=== PATIENT | male | born 1975 | race Caucasian/White ===

== ENCOUNTER 2019-11-25 16:12 | Inpatient (IN) | payer BC ==
[~2019-11-25] VITALS: Ht 177.8 cm; Wt 110.7 kg
[2019-11-25] MEDS ORDERED: METOPROLOL TART50 MG PO ×2 (16:18→18:20)
[2019-11-25] MEDS ORDERED: ATIVAN2 MG PO (16:19)
[2019-11-25] MEDS ORDERED: NAPROSYN500 MG PO (16:19)
[2019-11-25] MEDS ORDERED: BAYER CHEWABLE81 MG PO (16:19)
[2019-11-25 16:45] LABS: BASOPHILS 0.1 % (0-2); EOSINOPHILS 1.6 % (0-7); HEMATOCRIT 43.9 % (42.0-54.0); HEMOGLOBIN 15.3 g/dL (13.5-17.5); IMMATURE GRANULOCYTES 0.2 % (0-5); LYMPHOCYTES 9.5 % (15-50); MCH 30.6 pg (26.0-34.0); MCHC 34.9 g/dL (31.0-37.0); MCV 87.8 fL (80.0-100.0); MEAN PLATELET VOLUME 9.7 fL (7.4-10.4); MONOCYTES 10.1 % (2-11); NEUTROPHILS 78.5 % (40-80); PLATELET COUNT 284 10x3/uL (130-400); RDW 12.6 % (11.5-14.5); WBC 14.2 10x3/uL (4.8-10.8)
[2019-11-25 16:51] LABS: APPEARANCE CLEAR (CLEAR); BILIRUBIN NEGATIVE (NEGATIVE); COLOR YELLOW (YELLOW); GLUCOSE NEGATIVE (NEGATIVE); KETONE NEGATIVE (NEGATIVE); NITRITE NEGATIVE (NEGATIVE); PROTEIN NEGATIVE (NEGATIVE); UROBILINOGEN NORMAL (NORMAL)
[2019-11-25 18:06] LABS: CALC OSMOLALITY 280 mosm/kg (275-300); CALCIUM 9.6 mg/dL (8.5-10.1); CARBON DIOXIDE 27.7 mmol/L (21.0-32.0); CHLORIDE - SERUM 102 mmol/L (98-107); CREATININE - SERUM 1.2 mg/dL (0.6-1.3); GLUCOSE 105 mg/dL (74-106); POTASSIUM - SERUM 3.9 mmol/L (3.5-5.1); SODIUM 139 mmol/L (136-145); UREA NITROGEN 20 mg/dL (7-18); eGFR NON AFRICAN AMERICAN 69 mL/min (90-120)
[2019-11-25 18:15] LABS: ALKALINE PHOSPHATASE 82 U/L (30-120); ALT (SGPT) 61 U/L (10-68); AMYLASE - SERUM 62 U/L (25-115); BILIRUBIN - TOTAL 0.71 mg/dL (0.2-1.3); LIPASE 117 U/L (73-393); PROTEIN - SERUM 8.2 g/dL (6.4-8.2)
[2019-11-25 18:16] LABS: TROPONIN-I < 0.017 ng/mL (0.000-0.060)
[2019-11-25] MEDS ORDERED: HYDROCHLOROTH12.5 M1 PO (18:22)
[2019-11-25] MEDS ORDERED: EFFEXOR XR150 MG PO (18:22)
[2019-11-25] MEDS ORDERED: ALEVE220 MG PO (18:24)
--- NOTE | 2019-11-25 18:30 | NUR ---
PATIENT IN WITH C/O MID ABD PAIN, NAUSEA AND VOMITING, STATES IT STARTED THIS MORNING AND HAS GOTTEN WORSE. STATES HIS BM HAVE BEEN HIS NORMAL, FAMILY AT BEDSIDE.
--- NOTE | 2019-11-25 18:49 | NUR ---
TO CT VIA W/C PER TECH
[2019-11-25 19:00] VITALS: BP 139/94
--- NOTE | 2019-11-25 20:35 | NUR ---
NS 1 LITER BOLUS INITIATED AT 1808 BY CATIE RANGEL. DOCUMENTED UNDER ORDER FOR 150ML/HR NS. UNABLE TO CHANGE DOCUMENTATION.
--- NOTE | 2019-11-25 20:38 | NUR ---
NS LITER BOLUS STOPPED AT THIS TIME. .
--- NOTE | 2019-11-25 21:30 | NUR ---
PT ARRIVED ON UNIT VIA STRETCHER ESCORTED BY SPOUSE AND ER NURSE. POSITIONED IN BED FOR COMFORT. ORIENTED TO ROOM AND CALL LIGHT.
--- NOTE | 2019-11-25 21:35 | NUR ---
NG TUBE CONNECTED TO LIS PER ORDER.
--- NOTE | 2019-11-25 22:15 | NUR ---
STARTED IV FLUIDS PER ORDER.
--- NOTE | 2019-11-25 22:20 | NUR ---
RECEIVED ORDER FROM DYLAN HALL FOR ATIVAN 2 MG IVP Q8 PRN FOR ANXIETY...PT TAKES 2 MG PO Q8PRN AT HOME.
--- NOTE | 2019-11-25 22:30 | NUR ---
GAVE ATIVAN 2 MG IVP PER NEW PRN ORDER, PER REQUEST FOR ANXIETY. WILL MONITOR FOR EFFECTIVENESS.
[2019-11-25 22:46] VITALS: BP 137/94; BMI 35.0
--- NOTE | 2019-11-25 23:08 | NUR ---
ADMISSION ASSESSMENT AND HISTORY COMPLETE.
--- NOTE | 2019-11-25 23:40 | NUR ---
FLUSHED NG TUVE WITH 60 ML WATER, DRAINAGE VERY THICK.
--- NOTE | 2019-11-25 23:50 | NUR ---
GAVE MORPHINE AND ZOFRAN FOR C/O PAIN AND NAUSEA. WILL MONITOR FOR EFFECTIVENESS.
[2019-11-26 00:32] VITALS: BP 139/89
[2019-11-26 04:15] VITALS: BP 131/74
--- NOTE | 2019-11-26 06:05 | NUR ---
TURNED OFF SUCTION TO NG TUBE PER ORDER.
[2019-11-26 08:52] VITALS: BP 141/95
--- NOTE | 2019-11-26 09:33 | NUR ---
RESTING IN BED, NO DISTRESS NOTED, IV INFUSING, NG OFF SUCTION ORDERED, FAMILY IN ROOM
--- NOTE | 2019-11-26 11:00 | NUR ---
NG REMAINS OFF, CONT TO MONITOR FOR N AND V
[2019-11-26 12:34] VITALS: BP 142/73
[2019-11-26 13:48] VITALS: Ht 177.8 cm; Wt 110.7 kg
--- NOTE | 2019-11-26 14:21 | NUR ---
REMOVED NG TUBE PER DR ORDER, KYRIE WELL, WILL PROVIDE CL LIQ
--- NOTE | 2019-11-26 19:00 | NUR ---
BEDSIDE REPORT RECEIVED AND CARE OF PT ASSUMED. PT JUST AMBULATED AROUND UNIT WITH SPOUSE...STATES FEELING BETTER NOW THAT NG TUBE IS OUT. IV TO LEFT FA PATENT WITH 1/2 NS INFUSING AT 100 ML/HR. WILL MONITOR FOR NEEDS.
--- NOTE | 2019-11-26 21:08 | NUR ---
HS MEDICATIONS GIVEN TO INCLUDE ATIVAN 2 MG IVP PER REQUEST FOR ANXIETY AND SLEEP.
[2019-11-26 21:25] VITALS: BP 150/96
[2019-11-27 01:00] VITALS: BP 108/75
[2019-11-27 04:57] LABS: BASOPHILS 0.2 % (0-2); HEMATOCRIT 38.1 % (42.0-54.0); IMMATURE GRANULOCYTES 0.2 % (0-5); MCH 30.2 pg (26.0-34.0); MCHC 34.1 g/dL (31.0-37.0); MCV 88.4 fL (80.0-100.0); MEAN PLATELET VOLUME 9.6 fL (7.4-10.4); MONOCYTES 14.1 % (2-11); NEUTROPHILS 62.5 % (40-80); PLATELET COUNT 235 10x3/uL (130-400); RBC 4.31 10x6/uL (4.20-6.10); RDW 12.4 % (11.5-14.5)
[2019-11-27 05:10] LABS: WBC 8.3 10x3/uL (4.8-10.8)
[2019-11-27 05:19] LABS: CALC OSMOLALITY 276 mosm/kg (275-300); CALCIUM 8.6 mg/dL (8.5-10.1); CARBON DIOXIDE 28.2 mmol/L (21.0-32.0); CHLORIDE - SERUM 107 mmol/L (98-107); GLUCOSE 88 mg/dL (74-106); PHOSPHOROUS 3.4 mg/dL (2.5-4.9); POTASSIUM - SERUM 3.6 mmol/L (3.5-5.1); SODIUM 140 mmol/L (136-145); eGFR NON AFRICAN AMERICAN 86 mL/min (90-120)
[2019-11-27 05:22] VITALS: BP 105/69
[2019-11-27 05:33] LABS: UREA NITROGEN 11 mg/dL (7-18)
--- NOTE | 2019-11-27 08:23 | NUR ---
PATIENT RECIEVED SITTING UP IN BED WITH NO NEEDS VOICED, PATIENT TO HAVE REGULAR DIET FOR BREAKFAST THEN DISCHARGE IF TOLERATES.
[2019-11-27 09:33] VITALS: BP 138/79
[2019-11-27] MEDS ORDERED: FLAGYL500 MG PO (11:09)
[2019-11-27] MEDS ORDERED: LEVAQUIN750 MG PO (11:09)
--- NOTE | 2019-11-27 13:57 | NUR ---
IV REMOVED WITH NO REDNESS OR EDEMA AT SITE. DISCHARGE INSTRUCIONS GIVEN PATIENT VOICING UNDERSTANDING. PATIENT TAKEN BY WHEELCHAIR TO PRIVATE CAR.
--- NOTE | 2019-11-29 14:39 | MORECARE ---
CASE MANAGEMENT DISCHARGE SUMMARY PATIENT: TRACEY BLUE UNIT: [id number] ADM DATE: 11/26/19 AGE: 44 : 73 SEX: M ROOM/BED: D.2226 AUTHOR: DAISY WOODARD PHYSICIAN: REFERRING PHYSICIAN: TIFFANY PULIOD MD DATE OF SERVICE: 11/29/19 Discharge Plan Patient Name: TRACEY BLUE Facility: [facility]:[place]icken : 1975 Planned Disposition: Anticipated Discharge Date: Discharge Date: 11/27/2019 Expected LOS: Initial Reviewer: [email or web address] Initial Review Date: 11/29/2019 Generated: 11/29/19 3:38 pm Patient Name: TRACEY BLUE Page [id number] at 1439 All edits/amendments must be made on the electronic document DICTATION DATE: 11/29/19 1438 GENERAL SALES MANAGER: TERRI 11/29/19 1438 RPT#: [id number] DC DATE:11/27/19 STATUS: DIS IN [facility] [address] [place] [address] END OF REPORT
[2019-11-29 19:08] LABS: OVA + PARASITE EXAM Final report (())
== END 2019-11-27 14:00 | disposition home or self-care (01) | DRG 372 ==
LOC: D.ER 16:12 → D.MS 20:17 → OBSVTIME 20:17 → D.MS 11-26 14:04
PROVIDERS: Emergency Medicine; Family Medicine; ADMIT Internal Medicine Nephrology; ATTEND Internal Medicine Nephrology
DX: A04.9 Bacterial intestinal infection, unspecified (principal); K56.7 Ileus, unspecified; A08.4 Viral intestinal infection, unspecified; I10 Essential (primary) hypertension; E78.5 Hyperlipidemia, unspecified; F41.8 Other specified anxiety disorders; A09 Infectious gastroenteritis and colitis, unspecified